=== PATIENT | female | born 1950 | race African-American/Black ===

== ENCOUNTER 2016-12-14 10:29 | Outpatient (CLI) | payer MEDICARE ==
--- NOTE | 2016-12-14 21:14 | RAD ---
LEFT KNEE FOUR VIEWS: Date: 12-14-16 FINDINGS: No fracture, dislocation, or acute bony change was seen. Arthritic changes are seen consisting of os teophytes, medial joint space narrowing and some mild bony sclerosis. Patellofemoral osteophytes are present. I do not see a large joint effusion. IMPRESSION: Prominent arthritic changes. POS: HOME
== END 2016-12-14 10:30 | disposition home or self-care (01) ==
LOC: BURRAD 10:29
PROVIDERS: ATTEND Family Medicine
DX: M25.562 Pain in left knee (principal)